=== PATIENT | female | born 1975 | race Caucasian/White ===

== ENCOUNTER 2017-05-05 08:06 | Emergency (ER) | payer BC, OTHER ==
[2017-05-05 08:10] VITALS: O2SAT 98
[2017-05-05] MEDS ORDERED: Magnesium Citrate Oral SOL (300 ml) PO ONE (08:39)
--- NOTE | 2017-05-05 09:10 | ED PDOC ---
HPI:Nausea, Vomiting, Diarrhea Time Seen by Provider: 05/05/17 08:16 Chief Complaint (Nursing): Abdominal Pain Chief Complaint (Provider): Diarrhea History Per: Patient History/Exam Limitations: no limitations Onset/Duration Of Symptoms: Hrs (x10-11) Current Symptoms Are (Timing): Still Present Additional Complaint(s): Xiomara Olvera is a 41 year old female with a past medical history of kidney stones and gastritis and a past surgical history of an endoscopy presenting to the ED for an evaluation of constipation and subsequent diarrhea occurring at 7 PM last night prior to arrival. The patient reports feeling constipated at 7 PM , then drank fruit juice without relief. She then attempted an oatmeal remedy, prompting her diarrhea at 12 AM, which she reports to be soft and runny. The patient also reports blood present in her stool and swelling to her rectal area. She denies experiencing any trauma prior to her symptoms. PMD: None provided Past Medical History Reviewed: Historical Data, Nursing Documentation, Vital Signs Vital Signs: Last Vital Signs Temp 98.1 F 05/05/17 08:08 Pulse 97 H 05/05/17 08:08 Resp 22 05/05/17 08:08 BP 149/98 H 05/05/17 08:08 Pulse Ox 98 05/05/17 08:09 - Medical History PMH: Gastritis Other PMH: kidney stones - Surgical History Surgical History: Endoscopy - Family History Family History: States: Other Other Family History: non-contributory - Immunization History Hx Tetanus Toxoid Vaccination: No Hx Influenza Vaccination: No Hx Pneumococcal Vaccination: No - Home Medications Home Medications: Ambulatory Orders Medication Instructions Recorded oxyCODONE/Acetaminophen [Percocet 1 tab PO QID PRN #20 tab 09/29/14 5/325 mg Tab] - Allergies Allergies/Adverse Reactions: Allergies Allergy/AdvReac Type Severity Reaction Status Date / Time No Known Allergies Allergy Unverified 09/29/14 14:58 Review of Systems Constitutional: Negative for: Fever Cardiovascular: Negative for: Edema Respiratory: Negative for: Cough, Shortness of Breath Gastrointestinal: Positive for: Diarrhea, Constipation, Hematochezia, Rectal Pain (rectal swelling). Negative for: Abdominal Pain Neurological: Negative for: Weakness, Numbness, Headache Physical Exam - Reviewed Nursing Documentation Reviewed: Yes Vital Signs Reviewed: Yes - Physical Exam Appears: Positive for: Well, Non-toxic, No Acute Distress Head Exam: Positive for: ATRAUMATIC, NORMOCEPHALIC Skin: Positive for: Normal Color, Warm, Dry Eye Exam: Positive for: Normal appearance, EOMI ENT: Positive for: Normal ENT Inspection, Pharynx Is (mucous membranes moist) Neck: Positive for: Normal, Painless ROM Cardiovascular/Chest: Positive for: Regular Rate, Rhythm, Chest Non Tender Respiratory: Positive for: Normal Breath Sounds (clear to auscultation bilaterally). Negative for: Respiratory Distress Gastrointestinal/Abdominal: Positive for: Normal Exam, Soft. Negative for: Tenderness, Distended Back: Positive for: Normal Inspection Rectal: Positive for: Normal Exam, Rectal Tone Is: (anus appears normal; no signs of abscess present), Other (female scribe, Ya Gross, present for rectal exam; stool present in rectum however not able to manually disimpact due to patient discomfort) Extremity: Positive for: Normal ROM. Negative for: Pedal Edema Neurologic/Psych: Positive for: Alert, Oriented (x3). Negative for: Motor/ Sensory Deficits (or focal deficits; sensations intact) - ECG O2 Sat by Pulse Oximetry: 98 (RA) Pulse Ox Interpretation: Normal Medical Decision Making Medical Decision Makin:24 Re-evaluation: Patient reports large bowel movement after enema and feels better. Also states her pain is now gone. Scribe Attestation: Documented by Ya Gross, acting as a scribe for Agus Guevara MD. Provider Scribe Attestation: All medical record entries made by the Scribe were at my direction and personally dictated by me. I have reviewed the chart and agree that the record accurately reflects my personal performance of the history, physical exam, medical decision making, and the department course for this patient. I have also personally directed, reviewed, and agree with the discharge instructions and disposition. Disposition - Disposition Disposition: Routine/Home Disposition Time: 10:24 Condition: STABLE Forms: [employer] (I[place]ic)
[2017-05-05 10:37] VITALS: BP 120/70; PULSE 78; RESP 20; TEMP 98
== END 2017-05-05 10:37 | disposition home or self-care (01) ==
LOC: H.ER 08:06
DX: K59.00 Constipation, unspecified (principal); Z87.442 Personal history of urinary calculi